=== PATIENT | female | born 1990 | race Caucasian/White ===

== ENCOUNTER 2016-10-15 20:24 | Emergency (ER) | payer OTHER ==
[2016-10-17 13:28] LABS: HEPATITUS C VIRUS ANTIBODY Non React (Non React)
== END 2016-10-15 23:04 | disposition home or self-care (01) ==
LOC: ED 20:24
DX: Z77.21 Contact with and (suspected) exposure to potentially hazardous body fluids (principal); S50.811A Abrasion of right forearm, initial encounter; E05.90 Thyrotoxicosis, unspecified without thyrotoxic crisis or storm; Y35.91XA Legal intervention, means unspecified, law enforcement official injured, initial encounter; Y92.143 Cell of prison as the place of occurrence of the external cause; Y99.0 Civilian activity done for income or pay; Z88.8 Allergy status to other drugs, medicaments and biological substances